=== PATIENT | male | born 1985 | race Caucasian/White ===

== ENCOUNTER 2018-03-22 13:44 | Emergency (ER) | payer OTHER ==
[~2018-03-22] VITALS: Ht 167.6 cm; Wt 54.7 kg
[2018-03-22 13:48] VITALS: BP 113/79
[2018-03-22 14:26] LABS: BASOPHILS # (AUTO) 0.03 x10^3/uL (0-0.1); BASOPHILS % (AUTO) 0 % (0-1); EOSINOPHILS # (AUTO) 0.11 x10^3/uL (0-0.4); EOSINOPHILS % (AUTO) 2 % (1-7); LYMPHOCYTES # (AUTO) 2.74 x10^3/uL (1-3.4); LYMPHOCYTES % (AUTO) 37 % (22-44); MD NO; MEAN CORPUSCULAR HEMOGLOBIN 28.9 pg (27.5-34.5); MEAN CORPUSCULAR VOLUME 84.8 fL (81-97); MEAN PLATELET VOLUME 7.5 fL (7.4-10.4); MONOCYTES # (AUTO) 0.65 x10^3/uL (0.2-0.8); MONOCYTES % (AUTO) 9 % (2-9); NEUTROPHILS # (AUTO) 3.96 x10^3/uL (1.8-6.8); NEUTROPHILS % (AUTO) 53 % (42-75); PLATELET COUNT 326 x10^3/uL (130-400); RED BLOOD COUNT 4.92 x10^6/uL (4.38-5.82); RED CELL DISTRIBUTION WIDTH 12.2 % (9.4-14.8)
[2018-03-22 14:28] LABS: ALANINE AMINOTRANSFERASE 24 U/L (12-78); ALBUMIN 4.1 g/dL (3.4-5.0); ANION GAP 4 mmol/L (5-15); CALCIUM 8.7 mg/dL (8.5-10.1); CHLORIDE 109 mmol/L (98-107)
[2018-03-22 14:39] LABS: ALKALINE PHOSPHATASE 80 U/L (45-117); BILIRUBIN,TOTAL 0.5 mg/dL (0.2-1.0); CREATININE 1.27 mg/dL (0.7-1.3); FREE T4 (FREE THYROXINE) 1.21 ng/dL (0.76-1.46); THYROID STIMULATING HORMONE 0.709 mIU/L (0.358-3.740); TOTAL PROTEIN 7.3 g/dL (6.4-8.2)
== END 2018-03-22 15:26 | disposition home or self-care (01) ==
LOC: ED 14:20
DX: S63.637A Sprain of interphalangeal joint of left little finger, initial encounter (principal); F17.200 Nicotine dependence, unspecified, uncomplicated; L65.9 Nonscarring hair loss, unspecified; W21.02XA Struck by soccer ball, initial encounter; Y93.66 Activity, soccer; Y92.322 Soccer field as the place of occurrence of the external cause; Y99.8 Other external cause status
CPT/HCPCS: 29130; 36415; 80053; 84439; 84443; 85025; 99285